=== PATIENT | male | born 1985 | race American Indian/Alaskan Native ===

== ENCOUNTER 2017-09-23 14:56 | Emergency (ER) | payer MEDICAID ==
[2017-09-23] MEDS ORDERED: Bupivacaine 0.5% 30 ML SDV INJECT STA (15:05)
[2017-09-23] MEDS ORDERED: cefTRIAXone 1,000 MG VIAL IM ONE (15:07)
--- NOTE | 2017-09-23 15:08 | EDM.PDOC ---
ED HPI GENERAL MEDICAL PROBLEM - General Stated Complaint: RT HAND Time Seen by Provider: 09/23/17 14:56 Source of Information: Reports: Patient History Limitations: Reports: No Limitations - History of Present Illness INITIAL COMMENTS - FREE TEXT/NARRATIVE: 32 years old w m came with his PC after he injured his right ringfinger after he was working in his home.A metal sign fell onto his right ring finger. Pt had pain at his distal phlanx r ringfinger with a nonbleeding LAC at his right ringfinger dista/volar. Decr. ROM due to pain. No N/V/D, no dizziness or any other acute medical issues. Temp 98.0 BP 143/73 Pulse 67 Onset: Today Onset Date: 09/23/17 Onset Time: 14:00 Duration: Minutes:, Getting Worse Location: Reports: Upper Extremity, Right (right distal ring finger) Quality: Reports: Ache, Burning, Dull, Pressure Severity: Mild Improves with: Reports: Rest Worsens with: Reports: Movement Context: Reports: Trauma Associated Symptoms: Reports: No Other Symptoms right ring finger Pain Score (Numeric/FACES): 4 - Related Data Allergies Allergy/AdvReac Type Severity Reaction Status Date / Time No Known Allergies Allergy Verified 09/23/17 16:01 Home Meds: Home Meds Cephalexin [Keflex] 500 mg PO Q6HR #40 cap 09/23/17 [Rx] Review of Systems - Review of Systems Review Of Systems: See Below Constitutional: Reports: No Symptoms Eyes: Reports: No Symptoms Ears: Reports: No Symptoms Nose: Reports: No Symptoms Mouth/Throat: Reports: No Symptoms Respiratory: Reports: No Symptoms Cardiovascular: Reports: No Symptoms GI/Abdominal: Reports: No Symptoms Genitourinary: Reports: No Symptoms Musculoskeletal: Reports: Hand Pain (finger) Skin: Reports: Wound (r ringfinger) Neurological: Reports: No Symptoms Psychiatric: Reports: No Symptoms ED EXAM, GENERAL - Physical Exam Exam: See Below Exam Limited By: No Limitations General Appearance: Alert, WD/WN, Mild Distress Eye Exam: Bilateral Eye: EOMI, Normal Inspection Ears: Normal External Exam Ear Exam: Bilateral Ear: Auricle Normal Nose: Normal Inspection, Normal Mucosa Throat/Mouth: Normal Inspection Head: Atraumatic, Normocephalic Neck: Normal Inspection, Supple, Non-Tender Respiratory/Chest: No Respiratory Distress Cardiovascular: Normal Peripheral Pulses, Regular Rate, Rhythm, No JVD Peripheral Pulses: 1+: Radial (L), Radial (R) GI/Abdominal: Normal Bowel Sounds (Male) Exam: Deferred Rectal (Males) Exam: Deferred Back Exam: Normal Inspection, Full Range of Motion Extremities: Normal Capillary Refill, Limited Range of Motion (due to pain) Neurological: Alert, Oriented, CN II-XII Intact, Normal Cognition, Normal Gait, No Motor/Sensory Deficits Psychiatric: Normal Affect, Normal Mood Skin Exam: Warm, Dry, Other (LAC right distal phalanx volar aspect) Lymphatic: No Adenopathy ED TRAUMA EXTREMITY PROCEDURES - Laceration/Wound Repair Right Lateral Finger Lac/Wound Length In cm: 2 (right ringfinger) Appearance: Superficial, Linear, Clean Distal NVT: Neuro & Vascular Intact, No Tendon Injury Anesthetic Type: Digital Local Anesthesia - Bupivicaine (Marcaine): 0.5% Plain Local Anesthetic Volume: 3cc Skin Prep: Chlorhexidine (Hibiciens) Exploration/Debridement/Repair: Wound Explored, In a Bloodless Field, Explored to Base Suture Size: 4-0 # of Sutures: 4 Suture Type: Interrupted, Other (ethylon) Tetanus Status Addressed: Other (UTD 2014) Complications: No Course - Vital Signs Text/Narrative:: 32 years old w truman came with his PC after he injured his right ringfinger after he was working in his home.A metal sign fell onto his right ring finger. Pt had pain at his distal phlanx r ringfinger with a nonbleeding LAC at his right ringfinger dista/volar. Decr. ROM due to pain. No N/V/D, no dizziness or any other acute medical issues. Temp 98.0 BP 143/73 Pulse 67 PE: WNWDWM Lac right ringfinger, nonbleeding, 2 cm, linear Imaging: Comminuted Fx distal phalanx right ringfinger Labs: not indicated Procedure: Please see note above. Impression: Open, comminuted Fx r distal phalanx of right ring finger. Not work related. Tx: wound repair. ABx prescription Reexam: Improved Plan: D/C with instructions Last Recorded V/S: Last Vital Signs Temp 36.6 C 09/23/17 15:45 Pulse 64 09/23/17 15:45 Resp 18 10/26/17 15:45 BP 132/70 09/23/17 15:45 Pulse Ox 100 09/23/17 15:45 - Orders/Labs/Meds Orders: Active Orders 24 hr Category Date Time Status Fingers Fourth Digit Rt F8 [CR] Stat Exams 09/23/17 15:02 Taken Meds: Medications Discontinued Medications Generic Name Dose Route Start Last Admin Trade Name Freq PRN Reason Stop Dose Admin Bupivacaine HCl 30 ml 09/23/17 15:05 Marcaine 0.5% INJECT 09/23/17 15:06 ONETIME STA Ceftriaxone Sodium 1,000 mg 09/23/17 15:07 09/23/17 15:37 Rocephin IM 09/23/17 15:08 1,000 mg ONETIME ONE Administration Departure - Departure Time of Disposition: 15:45 Disposition: Home, Self-Care 01 Condition: Good Clinical Impression: Open fracture of distal phalanx of right hand Laceration of right ring finger Qualifiers: Encounter type: initial encounter Damage to nail status: without damage Foreign body presence: without foreign body Qualified Code(s): S61.214A - Laceration without foreign body of right ring finger without damage to nail, initial encounter Open fracture of phalanx of right ring finger Qualifiers: Encounter type: initial encounter Phalanx: distal Fracture alignment: displaced Qualified Code(s): S62.634B - Displaced fracture of distal phalanx of right ring finger, initial encounter for open fracture - Discharge Information Prescriptions: Cephalexin [Keflex] 500 mg PO Q6HR #40 cap Instructions: Laceration Care, Adult, [id number] Referrals: PCP,None [Primary Care Provider] - Forms: ED Department Discharge Additional Instructions: Keflex as recommended, wound check in 3 days with PMD. Please wear fingers splint until seen by an orthopedic surgeon. Motrin for pain. Rest, Ice and elevation. Please come back to the ed if your symptoms get worse acutely. Suture removal in 7-10 days. - My Orders Last 24 Hours: My Active Orders 09/23/17 15:02 Fingers Fourth Digit Rt F8 [CR] Stat - Assessment/Plan Last 24 Hours: My Active Orders 09/23/17 15:02 Fingers Fourth Digit Rt F8 [CR] Stat
--- NOTE | 2017-09-24 13:25 | CR ---
INDICATION: Smashed tip of 4th finger. RIGHT HAND: Three views of the right hand for 4th finger revealed a comminuted fracture of the ungual tuft of the 4th finger with fracture fragments in good position and alignment. No other bone or joint abnormality was seen. MTDD
== END 2017-09-23 16:25 | disposition home or self-care (01) ==
LOC: FB.ED 14:56
DX: S62.634B Displaced fracture of distal phalanx of right ring finger, initial encounter for open fracture (principal); S61.214A Laceration without foreign body of right ring finger without damage to nail, initial encounter; W23.1XXA Caught, crushed, jammed, or pinched between stationary objects, initial encounter
CPT/HCPCS: 12001; 73140; 96372; 99283; A4217; J0696